=== PATIENT | male | born 2000 | race Caucasian/White ===

== ENCOUNTER 2020-05-19 17:14 | Emergency (ER) | payer MEDICAID ==
[~2020-05-19] VITALS: Ht 180.3 cm; Wt 100.0 kg
[2020-05-19 17:16] VITALS: BP 119/68
== END 2020-05-19 18:54 | disposition home or self-care (01) ==
LOC: EMS 17:14
DX: U07.1 COVID-19 (principal); R05 Cough
CPT/HCPCS: 99283; U0003